=== PATIENT | male | born 1970 | race Caucasian/White ===

== ENCOUNTER 2018-09-16 04:27 | Emergency (ER) | payer OTHER ==
[2018-09-16] MEDS: IBUPROFEN 600 MG TAB PO (05:47)
== END 2018-09-16 07:24 ==
LOC: E/R 04:27
DX: S80.01XA Contusion of right knee, initial encounter (principal); S20.212A Contusion of left front wall of thorax, initial encounter; V47.5XXA Car driver injured in collision with fixed or stationary object in traffic accident, initial encounter; Z87.891 Personal history of nicotine dependence
CPT/HCPCS: 71046; 72170; 99284-25